=== PATIENT | female | born 2005 | race American Indian/Alaskan Native ===

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

== ENCOUNTER 2023-06-12 21:17 | Emergency (ER) | payer MEDICAID, SELFPAY ==
[2023-06-12 21:18] VITALS: BP 149/99; PULSE 114; RESP 18; TEMP 36.4; O2SAT 99; BMI 31.8
[2023-06-12] MEDS: Albuterol Sulfate 8 gm Inhaler (60 puffs) 2 PUFF INHALATION (22:25)
[2023-06-12] MEDS: predniSONE 20 MG Tablet 40 MG PO (22:40)
--- NOTE | 2023-06-12 22:54 | EDS_ITS ---
HPI HPI - URI History of Present Illness Chief Complaint: Cough Narrative Narrative: Patient is a 18-year-old female with diagnosis of recent viral syndrome presenting with worsening cough. Patient states about a week ago she went to urgent care with her cough. She states at that time she was also having a sore throat. She was told she likely had a viral syndrome and was prescribed cough medicine. She states been working and she was doing better but then today she got particularly bad coughing fit. She did have an episode of posttussive emesis. She notes she is never been tested for COVID during this illness. She denies any fever or chills. Denies any chest pain. But has a cough and she is not really having difficulty breathing. She denies any known history of reactive airway or asthma. She denies any fever but had some intermittent hot flashes which suddenly started sweating. She notes she has been mildly dizzy but attributes that to the cough medicine in addition to her Prozac. No other complaints or concerns at this time. Denies any significant GI or symptoms. ROS ROS ED Constitutional Constitutional ED: Reports sweats; Denies fever(s) Eyes Eyes: Denies change in vision ENT ENT ED: Reports sore throat; Denies rhinorrhea Cardiovascular Cardiovascular: Denies chest pain Respiratory/Chest Respiratory/Chest: Reports cough; Denies dyspnea or dyspnea on exertion Gastrointestinal Gastrointestinal: Denies abdominal pain, diarrhea or vomiting Genitourinary Genitourinary ED: Denies dysuria Musculoskeletal Musculoskeletal: Denies arthralgias or myalgias Integumentary Denies rash Neurologic Neurologic: Denies headache(s) PFSH PFSH Home Medications fluoxetine 40 mg capsule (Prozac) 60 mg PO DAILY 07/07/22 [History Last Taken Unknown] hydroxyzine HCl 25 mg tablet 25 mg PO BID PRN Anxiety 07/07/22 [History Last Taken Unknown] ondansetron 4 mg disintegrating tablet 4 mg PO Q6H PRN nausea and vomiting #20 tabs 07/07/22 [Rx Last Taken Unknown] prednisone 20 mg tablet 40 mg (2 x 20 mg) PO DAILY #8 tabs 06/12/23 [Rx Last Taken Unknown] Allergy/AdvReac Type Severity Reaction Status Date / Time No Known Allergies Allergy Verified 06/12/23 21:18 Surgical History H/O adenoidectomy Social History Smoking Status: Never smoker EXAM Physical Exam Const Vital Signs: 06/12/23 21:18 Temperature 97.6 F L Temperature Source Temporal Pulse Rate 114 H Respiratory Rate 18 Blood Pressure 149/99 H Blood Pressure Mean 115 Pulse Ox 99 Positive well nourished and well developed General Appearance ED: well developed and NAD HEENT Reports moist mucous membranes normocephalic and atraumatic Eyes PERRL Neck supple and no JVD Resp normal respiratory effort Resp Narrative: Coarse bronchial cough on exam Auscultation: Negative for rhonchi or wheezes Cardio no murmurs Rate: regular rate Rhythm: regular rhythm GI non-tender and non-distended Extremity normal to inspection and full ROM Neuro oriented x3 Sensorium / Orientation: alert Motor Exam: Negative for general weakness Psych mental status grossly normal Skin Rashes: no rashes MDM MDM MDM Narrative Medical decision making narrative: Patient evaluated worsening cough. Cough is very highly consistent with bronchitis specially given her recent viral illness. She has clear breath sounds throughout, no fever or hypoxia and I do not think she has pneumonia. Do not think she requires a chest x-ray however I did consider it. She overall is well-appearing. Is started on burst of prednisone (given first dose in the emergency room) as well as albuterol inhaler to help with presumed bronchospasm. Counseled on typical course of bronchitis. Counseled on return precautions such as worsening respiratory symptoms or developing a new fever which could be a sign of pneumonia. She verbalizes agreement understand this plan. She does not have a PCP on file so she is given referral for new primary care doctor. Discharged home in stable condition. COVID test is still pending and we will contact patient with results. She had symptoms for a week it will not change disposition. Covid is negative. Patient is contacted and informed of this finding. Discharge Plan Triage Chief Complaint: Cough ED Provider: Yamileth Martin Dx/Rx/DC Orders Clinical Impression: Acute viral syndrome, Bronchitis Instructions: ED Bronchitis, No Antibiotic (Adult), ED Viral Syndrome (Adult) Prescriptions: New prednisone 20 mg tablet 40 mg PO DAILY Qty: 8 0RF No Action fluoxetine [Prozac] 40 mg Capsule 60 mg PO DAILY hydroxyzine HCl 25 mg Tablet 25 mg PO BID PRN (Reason: Anxiety) ondansetron 4 mg tablet,disintegrating 4 mg PO Q6H PRN (Reason: nausea and vomiting) Qty: 20 0RF Primary Care Provider: Care Physician,No Primary Referrals: Obey Sanders MD [Med Staff - Balancing [employer]] - As Needed Care Physician,No Primary [Primary Care Provider] - Activity Restrictions/Additional Instructions: Use the inhaler given 1 to 2 puffs every 4-6 hours as needed for coughing fits or shortness of breath. Disposition Disposition: Home, Self Care Discharge Date/Time: 06/12/23 23:10
== END 2023-06-12 23:10 | disposition home or self-care (01) ==
PROVIDERS: Emergency Provider Emergency Medicine; Visit Provider Emergency Medicine
DX: B34.9 Viral infection, unspecified (principal); J40 Bronchitis, not specified as acute or chronic
CPT/HCPCS: 87811; 99282

== ENCOUNTER 2023-09-07 19:08 | Emergency (ER) | payer MEDICAID, SELFPAY ==
[2023-09-07 19:09] VITALS: BP 144/97; PULSE 123; RESP 16; TEMP 35.6; O2SAT 99; BMI 32.1
--- NOTE | 2023-09-07 19:19 | EX.ED.DYSGE1 ---
HPI History of Present Illness Chief Complaint: Flank Pain Detail of Chief Complaint: Right thoracic back pain radiating to the sternal Informant: patient Onset/Context/Timing Onset: Hours (Awoke from pain at 0530) Context: Sudden Onset Timing: Continuous Quality: Pain Location: Right thoracic back that wraps around to the sternum Current Severity: Mild Maximum Severity: Moderate Worsened by: Nothing Relieved by: Nothing Associated Symptoms Associated Symptoms: Nausea and lightheadedness when the pain was more intense Narrative Narrative: Patient is a 18-year-old who presents with right posterior dorsal pain that wraps around to the sternum. Onset was 0530. This awoke her from sleep. She has tried different maneuvers, hot shower with no benefit. She had pasta with meatballs and breaded toast at 6. This did not make the pain worse. There is no known history of cholelithiasis in the family. There is no known history of renal lithiasis in the family. She denies fever, chills or night sweats. She denies upper respiratory tract infectious symptoms. She denies cough or shortness of breath. She did report nausea when the pain intensified and was lightheaded. She presently denies lightheadedness. She denies black or maroon-colored stool. She denies dysuria, frequency, urgency or hematuria. Patient denies history of trauma. Patient not noted a skin lesion or rash. Patient states she has not had a menstrual cycle in months. She has a Mirena ring in place. Prior similar symptoms: No Recent Illness/Hospitalization: No PFSH PFSH Home Medications fluoxetine 40 mg capsule (Prozac) 60 mg PO DAILY 07/07/22 [History Last Taken Unknown] hydroxyzine HCl 25 mg tablet 25 mg PO BID PRN Anxiety 07/07/22 [History Last Taken Unknown] sulfamethoxazole 800 mg-trimethoprim 160 mg tablet 1 tab PO BID #14 TABLETS 09/07/23 [Rx Last Taken Unknown] Allergy/AdvReac Type Severity Reaction Status Date / Time No Known Allergies Allergy Verified 06/12/23 21:18 Surgical History H/O adenoidectomy Social History Smoking Status: Never smoker ROS ROS ED Constitutional Constitutional ED: Denies chills, fever(s) or subjective ENT ENT ED: Denies rhinorrhea or sore throat Cardiovascular Cardiovascular: Denies chest pain or palpitations Respiratory/Chest Respiratory/Chest: Denies cough, dyspnea or dyspnea on exertion Gastrointestinal Gastrointestinal: Reports nausea; Denies abdominal pain, melena or vomiting Genitourinary Genitourinary ED: Denies dysuria, hematuria or urinary frequency Musculoskeletal Musculoskeletal: Reports back pain; Denies arthralgias, myalgias or neck pain Integumentary Denies rash Psychiatric Psychiatric: Reports anxiety Hematologic/Lymphatic Hematologic/Lymphatic: Reports systems reviewed and no addt'l complaints, except as documented; Denies easy bruising EXAM Physical Exam Const Vital Signs: 09/07/23 19:09 Temperature 96.1 F L Temperature Source Temporal Pulse Rate 123 H Respiratory Rate 16 Blood Pressure 144/97 H Blood Pressure Mean 112 Pulse Ox 99 Oxygen Delivery Method Room Air Positive well nourished, well developed and obese Constitutional Narrative: Vital signs are remarkable for heart rate of 123 and blood pressure 144/97. She does not have history of hypertension. General Appearance ED: well developed, NAD and pallor; Negative for cyanotic or diaphoretic Nutritional Appearance: obese HEENT Reports moist mucous membranes HEENT Narrative: Head is atraumatic and normocephalic. Ears are normal. Nares patent. There are 2 piercings noted left naris. Posterior pharynx is normal. Eyes PERRL and EOMs intact bilaterally General Eye ED: Negative for pale conjunctiva or scleral icterus Neck no lymphadenopathy, supple and no JVD Neck Narrative: Trachea is midline. There is no stridor. Chest Wall palpation of chest normal Resp normal respiratory effort and clear to auscultation bilaterally Cardio regular rhythm, S1 normal heart sound, S2 normal heart sound and no murmurs Rate: tachycardic GI normal to inspection, nondistended, normoactive bowel sounds, non-tender and non-distended; Negative for hepatosplenomegaly or no masses Palpation: soft Back/Spine no CVA tenderness Back/Spine Narrative: There is pain outpatient over the right scapula. There is no rash or lesions noted. Extremity normal to inspection General Extremety ED: Negative for edema or tenderness General Extremity: Negative for edema Neuro oriented x3, CN's II-XII intact bilaterally and no sensory deficits noted Sensorium / Orientation: alert Motor Exam: strength 5/5 throughout Psych mental status grossly normal Skin no rashes or lesions noted, no wounds and skin turgor normal General Skin Exam: elasticity normal and pallor; Negative for jaundice MDM MDM MDM Narrative Medical decision making narrative: Since patient is not PERC negative and started abruptly will obtain D-dimer. Chest x-ray was obtained to determine with any pulmonary pathology and specifically infiltrate etc. Patient was placed on a monitor to determine rate and if there is any dysrhythmia. CBC assess white count and H&H. Basic metabolic panel to assess renal function. Lab Data Attestation: I reviewed the patient's lab results. Lab results narrative: White count is elevated at 13.3. Differential is pending. This is nonspecific. Urine is positive for some gravity 1.025, protein, ketones, occult blood and leukoesterase. Negative for nitrites. Microscopic pending. Basic metabolic panel is unremarkable. UA is consistent with infection. 0-5 RBCs with 10-25 WBCs and 2+ bacteria. Will send culture. D-dimer is negative. Labs: Laboratory Results - last 24 hr 09/07/23 09/07/23 19:25 19:27 WBC 13.3 H RBC 4.58 Hgb 13.8 Hct 40.2 MCV 87.8 MCH 30.1 MCHC 34.3 RDW Std Deviation 39.0 RDW Coeff of Kelsi 12.2 Plt Count 328 MPV 9.7 D-Dimer Quant (PE/DVT) 0.37 Sodium 140 Potassium 3.7 Chloride 108 H Carbon Dioxide 24.0 Anion Gap 8 BUN 10 Creatinine 0.84 Estim Creat Clear Calc 108.56 Est GFR (MDRD) Af Amer 110 Est GFR (MDRD) Non-Af 91 BUN/Creatinine Ratio 11.9 Glucose 110 H Calcium 9.5 Urine Color Yellow Urine Clarity Sl. Cloudy Urine pH 5.0 Ur Specific Wray 1.025 Urine Protein 30 H Urine Glucose (UA) Normal Urine Ketones 5 H Urine Occult Blood 25 H Urine Nitrite Negative Urine Bilirubin Negative Urine Urobilinogen Normal Ur Leukocyte Esterase 500 H Urine RBC 0-5 SEEN Urine WBC 10-25 SEEN Ur Squamous Epith Cells 5-10 SEEN Urine Bacteria 2+ Urine Mucus 0 SEEN Radiography Chest X-Ray - ED: 2 View (Cardiac silhouette is normal. Heart is small. Lung parenchyma is normal. Mediastinum is normal. Periosteal structures are unremarkable. The chest x-ray is normal. There is apparently reviewed interpreted by me at 1949.) Diagnostic Testing: Clinical Impression(s) from Imaging Studies Chest X-Ray 09/07/23 19:36 IMPRESSION: Normal x-ray examination of the chest. Electronically Signed: Minesh Hogan MD at 19:47 EST , Treatment and Re-Evaluation :: Patient was informed of her test results and plan. She had no questions. She was discharged to home. She received her first dose of Bactrim in the emergency department. Discharge Plan Triage Chief Complaint: Flank Pain Other Complaint: Chest Pain ED Provider: Warren James Dx/Rx/DC Orders Clinical Impression: Pyelonephritis of right kidney, Sinus tachycardia, Sepsis Instructions: ED Pyelonephritis, Female (Adult) Prescriptions: New sulfamethoxazole-trimethoprim [sulfamethoxazole-trimethoprim] 800-160 mg tablet 1 tab PO BID Qty: 14 0RF No Action fluoxetine [Prozac] 40 mg Capsule 60 mg PO DAILY hydroxyzine HCl 25 mg Tablet 25 mg PO BID PRN (Reason: Anxiety) Primary Care Provider: Care Physician,No Primary Referrals: [facility] [Group of Physicians] - 3-5 Days if not improving Care Physician,No Primary [Primary Care Provider] - Disposition Disposition: Home, Self Care
[2023-09-07 19:33] LABS: Color, Urine Yellow (Yellow); Glucose, Dipstick Normal (Normal); Ketone-Dipstick 5 mg/dl (Negative); Leukocyte Esterase-Dipstick 500 /ul (Negative); Mucous, Urine 0 SEEN /hpf (<or=2+); Nitrite-Dipstick Negative (Negative); Occult Blood-Urine 25 /ul (Negative); Protein-Dipstick 30 mg/dl (Negative); Specific Gravity, Urine 1.025 (1.002-1.030); Urine Bilirubin Dipstick Negative (Negative); Urine Clarity Sl. Cloudy (Clear); Urine Urobilinogen Normal (Normal)
[2023-09-07 19:35] LABS: Hematocrit 40.2 % (37-47); Hemoglobin 13.8 g/dL (12.0-15.0); Mean Corp Hgb Conc 34.3 g/dL (32-36); Mean Corpuscular Hgb 30.1 pg (27.0-32.0); Mean Corpuscular Volume 87.8 fL (81-99); Mean Platelet Vol. 9.7 fl (6.2-12.0); Platelet Count 328 K/mm3 (150-450); RBC Distribution Width CV 12.2 % (11.6-14.6); Red Blood Count 4.58 M/mm3 (4.2-5.4); White Blood Count 13.3 K/mm3 (4.4-11.0)
--- NOTE | 2023-09-07 19:36 | RAD_ITS ---
STUDY: X-RAY CHEST REASON FOR EXAM: Female, 18 years old. Pain right side TECHNIQUE: Frontal and lateral views of the chest. COMPARISON: None. FINDINGS: The lungs are clear and expanded. There is no demonstrated pleural abnormality. Normal size heart. Normal mediastinum and waldo. Normal visualized pulmonary arteries. Normal visualized aortic arch and descending thoracic aorta. Normal visualized thoracic spine. Normal visualized ribs, clavicles, and shoulders. There is no demonstrated abnormality of the visualized soft tissue structures of the upper abdomen. RAD/Chest PA and Lateral IMPRESSION: Normal x-ray examination of the chest. Electronically Signed: Minesh Hogan MD at 19:47 EST ,
[2023-09-07 19:40] LABS: Squamous Epithelial Cells - UA 5-10 SEEN /hpf (5-10)
[2023-09-07 19:41] LABS: Bacteria 2+ /hpf (None Seen); White Blood Cells 10-25 SEEN /hpf (0-5)
[2023-09-07 19:42] LABS: Red Blood Cells-Urine 0-5 SEEN /hpf (0-5)
--- OUTSIDE RECORDS SUMMARY | 2023-09-07 19:47 | XMS RPT_ITS | CCD ---
Author Name Unknown Address [address] [place] [address] Organization [facility] Care Team Providers Care Manager [place] Name Role Phone NELLY MOORE Attending Unavailable MOORE, NELLY Montague Referring Unavailable NAVI, THADDENE Primary Care Unavailable NAVI, THADDENE Primary Care Unavailable MOORE, NELLY Montague Attending Unavailable HERNAN, DURAN Primary Care Unavailable BALONIKIKI FALLON Attending Unavaila ble NAVI, THADDENE Primary Care Unavailable MOORE, NELLY Montague Attending Unavailable MOORE, NELLY Montague Referring Unavailable HERNAN, DURAN Primary Care Unavailable BALONIKIKI FALLON Attending Unavaila ble BALONIERKIKI Referring Unavaila ble NAVI, THADDENE Primary Care Unavailable MOORE, NELLY Montague Attending Unavailable MOORE, NELLY Montague Referring Unavailable NAVI, THADDENE Primary Care Unavailable DURAN BECERRA Attending Unavailabl e HERNAN, DURAN FREITAS Primary Care Unavailabl e HERNAN, DURAN FREITAS Primary Care Unavailabl e HERNAN, DURAN FREITAS Attending Unavailabl e Problems Active Problems Problem Classification Problem Date Documented Da te Episodic/Chronic Anxiety disorders (2 sources) Generalized anxiety disorder; Translations: [Generalized anxiety disorder] Onset: 04-05-2020 Chronic Nutritional deficiencies (2 sources) Vitamin D deficiency, unspecified; Translations: [Vitamin D deficiency, unspecified] Onset: 01-01-2023 Chronic Other lower respiratory disease (2 sources) Rib pain Onset: 07-10-2022 Episodic Other nutritional; endocrine; and metabolic disorders (2 sources) Other obesity; Translations: [Other obesity] Onset: 01-01-2023 Chronic Other nutritional; endocrine; and metabolic disorders (2 sources) Body mass index (BMI) 30.0-30.9, adult; Translations: [Body mass index (BMI) 30.0-30.9, adult] Onset: 01-01-2023 Chronic Other upper respiratory disease (2 sources) Other allergic rhinitis; Translations: [Other allergic rhinitis] Onset: 01-01-2023 Chronic Superficial injury; contusion (2 sources) Contusion of left front wall of thorax, initial encounter; Translations: [Contusion of right hip, initial encounter] Onset: 07-10-2022 Episodic Unclassified (1 source) Shoulder Injury Onset: 05-24-2022 Unclassified (2 sources) Acute Illness; Translations: [Acute Illness] Onset: 07-27-2023 Viral infection (2 sources) COVID-19; Translations: [COVID-19] Onset: 07-27-2023 Past or Other Problems Problem Classification Problem Date Documented Da te Episodic/Chronic Administrative/social admission (2 sources) Dietary counseling and surveillance; Translations: [Dietary counseling and surveillance] Onset: 01-01-2023 Episodic Other aftercare (1 source) Other intermediate (current) drug therapy; Translations: [Other director long term care (current) drug therapy] Onset: 01-09-2022 Episodic Sprains and strains (4 sources) Strain of muscle, fascia and tendon at neck level, initial encounter; Translations: [Strain of unspecified muscle, fascia and tendon at shoulder and upper arm level, right arm, initial encounter] Onset: 05-24-2022 Episodic Results Test Name Value Interpretation Reference Range Facil ity Encounters Encounter Date Encounter Type Care Provider Facility Start: 07-27-2023 End: 07-27-2023 ambulatory DURAN BECERRA Provider Locations Start: 01-01-2023 End: 01-01-2023 ambulatory DURAN BECERRA Provider Locations Start: 01-01-2023 End: 01-01-2023 Encounter for general adult medical examination without abnormal findings DURAN BECERRA Provider Locations Start: 07-10-2022 End: 07-10-2022 Emergency department patient visit NELLY MOORE [facility] Start: 05-24-2022 End: 05-24-2022 Emergency department patient visit KIKI CORTEZ [facility] Start: 01-09-2022 ambulatory JUAN CARLOS MCELROY [facility] Procedures Date Procedure Procedure Detail Performing Clinician Start: 01-01-2023 Follow-up visit Follow-up DURAN FORTINO HERNAN Payers Date Payer Category Payer Medicaid [id number] 2019 Unknown [id number] 2003 Unknown [id number] 2.16. [id number] 2003 Unknown [id number] 2.16. [id number] 2003 Unknown [id number] 2.16. [id number] 2003 Unknown [id number] 2.16. [id number] 2003 Unknown [id number] 2.16. [id number] 2003 Unknown [id number] 2.16. [id number] 1966 Unknown [id number] 2.16. [id number] Unknown [id number] 2.16. [id number] Unknown [id number] 2.16. [id number] Clinical Note 07-10-2022 Note Date & Type Note Facility 07-10-2022 Note PROCEDURE: XR-HIP UN I RIGHT 2/3 VIEWS W/PELVIS DATE OF EXAM: 07/09/2022 11:01 PM DEMOGRAPHICS: 17 years old Female INDICATION: right hip pain s/p minor fall History: right hip pain s/p minor fall. Number of Series/Images: 3. COMPARISON: CT abdomen pelvis 09/14/2020 FINDINGS: 2 views of the Right hip(s) were obtained in addition to an AP view of the pelvis. The osseous structures are intact. The joint spaces are maintained. There is no significant soft tissue swelling. IMPRESSION: IMPRESSION: 1. No acute findings. This dictation was created with voice recognition software. While attempts have been made to review the dictation as it is transcribed, on occasion the spoken word can be misinterpreted by the technology leading to omissions or inappropriate words, phrases or sentences. Electronically Signed by: uAng Sage DO, 07/09/2022 11:05 PM [facility] Clinical Note 07-10-2022 Note Date & Type Note Facility 07-10-2022 Note PROCEDURE: XR-C SPIN E 2/3 VIEW DATE OF EXAM: 07/09/2022 10:59 PM DEMOGRAPHICS: 17 years old Female INDICATION: pain s/p minor fall. Number of Series/Images: 5. COMPARISON: CT cervical spine 08/19/2020 FINDINGS: AP, lateral and odontoid views of the cervical spine were done. No acute fracture or subluxation. There is normal vertebral body alignment. Vertebral body heights and disc spaces are preserved. The visualized soft tissues are unremarkable. IMPRESSION: IMPRESSION: No acute cervical spine abnormality. This dictation was created with voice recognition software. While attempts have been made to review the dictation as it is transcribed, on occasion the spoken word can be misinterpreted by the technology leading to omissions or inappropriate words, phrases or sentences. Electronically Signed by: Aung Sage DO, 07/09/2022 11:01 PM [facility] Clinical Note 05-24-2022 Note Date & Type Note Facility 05-24-2022 Note PROCEDURE: XR-SHOULD ER RIGHT 2 OR MORE VIEWS DATE OF EXAM: 05/23/2022 11:37 PM DEMOGRAPHICS: 17 years old Female INDICATION: pain History: shoulder pain. Number of Series/Images: 3. COMPARISON: No existing relevant imaging study corresponding to the same anatomical region is available. FINDINGS: 3 views of the Right shoulder were obtained. No acute fracture or dislocation. Joint spaces are maintained. No significant soft tissue swelling. No discrete soft tissue mass or radiopaque foreign body. IMPRESSION: IMPRESSION: 1. Negative shoulder series. This dictation was created with voice recognition software. While attempts have been made to review the dictation as it is transcribed, on occasion the spoken word can be misinterpreted by the technology leading to omissions or inappropriate words, phrases or sentences. Electronically Signed by: Taiwo Grimm DO, 05/23/2022 11:38 PM [facility] Summary Purpose Family History No Family History Records FoundNo Family History Records Found Advance Directives No Advanced Directives Records FoundNo Advanced Directives Records Found Additional Source Comments INFORMATION SOURCE (unrecogn ized section and content) DATE CREATED AUTHOR AUTHOR'S ORGANIZ ATION 07/29/2023 Provider Locatio ns FOR RECORDS PERTAINING TO PATIENTS WHO ARE OR HAVE BEEN ENROLLED IN A CHEMICAL DEPENDENCY/SUBSTANCEABUSE PROGRAM, SOME INFORMATION MAY BE OMITTED. This clinical summary was aggregated from multiple sources. Caution should be exercised in using it in the provision of clinical care. This summary normalizes information from multiple sources, and as a consequence, information in this document may materially change the coding, format and clinical context of patient data. In addition, data may be omitted in some cases. CLINICAL DECISIONS SHOULD BE BASED ON THE PRIMARY CLINICAL RECORDS. [facility] [employer], [facility]. provides no warranty or guarantee of the accuracy or completeness of information in this document.
[2023-09-07 19:49] LABS: Anion Gap 8 (5-15); BUN 10 mg/dL (7-18); BUN/Creat Ratio 11.9 RATIO (10-20); Calcium,Total 9.5 mg/dL (8.5-10.1); Chloride 108 mmol/L (98-107); Creatinine, Serum 0.84 mg/dL (0.55-1.02); EST Glomerular Filtration Rate 91 mL/min (>60); Est Glom Filt Rate - Afr Amer 110 mL/min (>60); Estimated Creatinine Clearance 108.56 ml/min; Glucose 110 mg/dL (74-106); Potassium 3.7 mmol/L (3.5-5.1); Sodium Level 140 mmol/L (136-145)
[2023-09-07 19:53] LABS: D-Dimer Quantitative (DVT/PE) 0.37 FEU/ug/m (0.27-0.49)
[2023-09-07] MEDS: Smz/Tmp Ds Tablet 1 TABLET PO (20:56)
[2023-09-07 20:57] VITALS: BP 130/88; PULSE 88; RESP 16; TEMP 36.8; O2SAT 96
== END 2023-09-07 20:58 | disposition home or self-care (01) ==
PROVIDERS: Emergency Provider Emergency Medicine; Visit Provider Emergency Medicine
DX: N12 Tubulo-interstitial nephritis, not specified as acute or chronic (principal); A41.9 Sepsis, unspecified organism; R00.0 Tachycardia, unspecified
CPT/HCPCS: 71046; 80048; 81001; 85027; 85379; 87086; 99285; A4216